=== PATIENT | male | born 1975 | race Caucasian/White ===

== ENCOUNTER 2018-04-26 11:23 | Inpatient (IN) | payer OTHER ==
[2018-04-26 11:54] VITALS: BMI 31.7
--- NOTE | 2018-04-26 15:08 | HP ---
CIWA Score - CIWA Score Nausea/Vomitin-No Nausea/No Vomiting Muscle Tremors: 3 Anxiety: 4-Mod. Anxious/Guarded Agitation: 4-Moderately Restless Paroxysmal Sweats: 1-Minimal Palms Moist Orientation: 0-Oriented Tacttile Disturbances: 0-None Auditory Disturbances: 0-None Visual Disturbances: 0-None Headache: 0-None Present CIWA-Ar Total Score: 12 Admission ROS BHS - HPI Chief Complaint: ALCOHOL WITHDRAWAL SX Allergies/Adverse Reactions: Allergies Allergy/AdvReac Type Severity Reaction Status Date / Time No Known Allergies Allergy Verified 04/26/18 12:13 History of Present Illness: 43 Y/O H/MALE WITH A HX OX ALCOHOL DEPENDENCE SEEKING DETOX [place]. PT REPORTS HE WENT TO [facility] YESTERDAY BECAUSE WAS INTOXICATED AND WAS DISCHARGED TODAY. PT DID NOT BRING DISCHARGE PAPERS STATING "I MUST HAVE LOST IT". PT IS ALERT O X 3. REPORTS PREVIOUS TREATMENT EPISODES "A WHILE BACK" HERE. PT REPORTS HE WENT TO [facility] ALSO WHERE HE WAS GIVEN LIBRIUM POSTED BELOW OBTAINED FROM [facility]. Data Detail Level: Printer-Friendly View Extended View Confidential Drug Utilization Report Search Terms: everardo gonzalez, 1975 Search Date: 04/26/2018 02:59:07 PM The Drug Utilization Report below displays all of the controlled substance prescriptions, if any, that your patient has filled in the last twelve months. The information displayed on this report is compiled from pharmacy submissions to the Department, and accurately reflects the information as submitted by the pharmacies. This report was requested by: Ramila Hanson | Reference #: [id number] You have not added a BIANCA number. Keeping your BIANCA number(s) up to date on the My BIANCA Numbers page will enable the separation of your prescriptions from others ' in the search results. Others' Prescriptions Patient Name: Everardo Gonzalez Date: 1975 Address: [address] [place] [address] Sex: Male Rx Written Rx Dispensed Drug Quantity Days Supply Prescriber Name 04/22/2018 04/22/2018 chlordiazepoxide 10 mg capsule 27 3 Pean, Billy Mackenzie * - Drugs marked with an asterisk are compound drugs. If the compound drug is made up of more than one controlled substance, then each controlled substance will be a separate row in the table. - Ebola screening Have you traveled outside of the country in the last 21 days: No (N) Have you had contact with anyone from an Ebola affected area: No Have you been sick,other than usual withdrawal symptoms: No Do you have a fever: No - Review of Systems Constitutional: Chills, Night Sweats EENT: reports: Cataracts (BOTH EYES), Blurred Vision (HX LEFT EYE RETINAL DETACHMENT), Dental Problems (MISSING TEETH UPPER/LOWER) Respiratory: reports: No Symptoms reported Cardiac: reports: No Symptoms Reported GI: reports: Diarrhea : reports: No Symptoms Reported Musculoskeletal: reports: No Symptoms Reported Integumentary: reports: No Symptoms Reported Neuro: reports: Tremors Endocrine: reports: No Symptoms Reported Hematology: reports: No Symptoms Reported Psychiatric: reports: Orientated x3 Other Systems: Reviewed and Negative Patient History - Patient Medical History Hx Anemia: No Hx Asthma: No Hx Chronic Obstructive Pulmonary Disease (COPD): No Hx Cancer: No Hx Cardiac Disorders: No Hx Hypertension: No Hx Hypercholesterolemia: No Hx Pacemaker: No HX Cerebrovascular Accident: No Hx Seizures: No Hx Dementia: No Hx Diabetes: No Hx Gastrointestinal Disorders: No Hx Liver Disease: No Hx Genitourinary Disorders: No Hx Sexually Transmitted Disorders: No (DENIES) Hx Renal Disease (ESRD): No Hx Thyroid Disease: No Hx Human Immunodeficiency Virus (HIV): No (NEGATIVE HX) Hx Hepatitis C: No (DENIES) Hx Depression: No Hx Suicide Attempt: No (DENIES S/I) Hx Bipolar Disorder: No Hx Schizophrenia: No - Patient Surgical History Past Surgical History: Yes Hx Neurologic Surgery: No Hx Cataract Extraction: No Hx Cardiac Surgery: No Hx Lung Surgery: No Hx Breast Surgery: No Hx Breast Biopsy: No Hx Abdominal Surgery: No Hx Appendectomy: No Hx Cholecystectomy: No Hx Genitourinary Surgery: No Hx Orthopedic Surgery: No Other Surgical History: L EYE SURGERY 1997 Anesthesia Reaction: No - PPD History Previous Implant?: Yes Documented Results: Negative w/proof Date: 04/08/14 - Smoking Cessation Smoking history: Current every day smoker Have you smoked in the past 12 months: Yes Aproximately how many cigarettes per day: 10 Hx Chewing Tobacco Use: No Initiated information on smoking cessation: Yes 'Breaking Loose' booklet given: 04/26/18 - Substances Abused Alcohol Route: Oral Frequency: Daily Amount used: 3 PINTS OF VODKA, 1 6 PACK OF BEER Age of first use: 14 Date of Last Use: 04/25/18 Family Disease History - Family Disease History Family Disease History: Diabetes: Father (HTN), Mother, Other: Father Admission Physical Exam [facility] - Vital Signs Vital Signs: Vital Signs - 24 hr 04/26/18 11:52 Temperature 97.5 F L Pulse Rate 83 Respiratory 19 Rate Blood Pressure 146/80 - Physical General Appearance: Yes: Moderate Distress, Irritable, Anxious HEENTM: Yes: EOMI, Normocephalic, POLINA (RIGHT EYE), Pharynx Normal, Other (LEFT EYE CORNEAL OPACITY) Respiratory: Yes: Chest Non-Tender, Lungs Clear, Normal Breath Sounds, No Respiratory Distress Neck: Yes: No masses,lesions,Nodules, Supple, Trachea in good position Breast: Yes: Breast Exam Deferred Cardiology: Yes: Regular Rhythm, Regular Rate, S1, S2 Abdominal: Yes: Normal Bowel Sounds, Non Tender, Soft Genitourinary: Yes: Other (N/C) Back: Yes: Within Normal Limits Musculoskeletal: Yes: full range of Motion, Gait Steady Extremities: Yes: Normal Range of Motion, Non-Tender Neurological: Yes: 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 intact, Fully Oriented, Alert, Motor Strength 5/5 Integumentary: Yes: Dry, Warm Lymphatic: Yes: Within Normal Limits - Diagnostic (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, left Current Visit: Yes Status: Chronic (3) Nicotine dependence Current Visit: Yes Status: Acute Qualifiers: Nicotine product type: cigarettes Substance use status: in withdrawal Qualified Code(s): F17.213 - Nicotine dependence, cigarettes, with withdrawal (4) Alcohol dependence with uncomplicated withdrawal Current Visit: Yes Status: Acute Cleared for Admission [facility] - Detox or Rehab [facility] Level of Care: Medically Managed Detox Regimen/Protocol: Librium [facility] Breath Alcohol Content Breath Alcohol Content: 0.016 Urine Drug Screen - Results Drug Screen Negative: No Urine Drug Screen Results: BZO-Benzodiazepines
[2018-04-26] MEDS ORDERED: NICOTINE POLACRILEX 2 MG GUM BC PRN (15:19)
[2018-04-26] MEDS ORDERED: IBUPROFEN 400 MG TABLET (FP) PO PRN (15:19)
[2018-04-26] MEDS ORDERED: guaiFENesin/D-METHORPHAN HB 10 ML UNIT-DOSE CUPS PO PRN (15:19)
[2018-04-26] MEDS ORDERED: MENTHOL/PHENOL 1 EACH UD MM PRN (15:19)
[2018-04-26] MEDS ORDERED: ACETAMINOPHEN 325 MG TABLET (FP) PO PRN (15:19)
[2018-04-26] MEDS ORDERED: chlordiazePOXIDE HCL 25 MG CAPSULE PO PRN (15:19)
[2018-04-26] MEDS ORDERED: MAG HYDROX/AL HYDROX/SIMETH 30 ML UNIT-DOSE CUP PO PRN (15:19)
[2018-04-26] MEDS ORDERED: LOPERAMIDE HCL 2 MG CAPSULE PO PRN (15:19)
[2018-04-26] MEDS ORDERED: MAGNESIUM HYDROX 2400MG/30ML ORAL SUSPENSION 30 ML CUP PO PRN (15:19)
[2018-04-26] MEDS ORDERED: P-EPHED 60MG/TRIPROLIDI 2.5MG TABLET PO PRN (15:19)
[2018-04-26] MEDS ORDERED: MAGNESIUM CITRATE 300 ML BOTTLE PO PRN (15:19)
[2018-04-26] MEDS: chlordiazePOXIDE HCL 25 MG CAPSULE PO SCH ×2 (16:30→22:22)
[2018-04-26] MEDS: NICOTINE 14 MG/24 HOURS TOPICAL PATCH TD SCH (16:34)
[2018-04-26 21:19] LABS: URINE APPEARANCE TURBID; URINE BILIRUBIN NEGATIVE (<2.0 mg/dL); URINE COLOR YELLOW; URINE GLUCOSE (UA) NEGATIVE (NEGATIVE); URINE KETONE TRACE (NEGATIVE); URINE LEUK ESTERASE NEGATIVE (NEGATIVE); URINE NITRITE NEGATIVE (NEGATIVE); URINE PROTEIN NEGATIVE (NEGATIVE); URINE UROBILINOGEN NEGATIVE mg/dL (0.2-1.0)
[2018-04-26] MEDS ORDERED: MELATONIN 5 MG TABLETS PO PRN (22:00)
[2018-04-26] MEDS: THIAMINE HCL 100 MG TABLET (FP) PO SCH (22:22)
[2018-04-27] MEDS: chlordiazePOXIDE HCL 25 MG CAPSULE PO SCH ×4 (05:35→22:21)
[2018-04-27 09:52] LABS: HEMATOCRIT 40.4 % (35.4-49); HEMOGLOBIN 13.8 GM/dL (11.7-16.9); MCH 27.9 pg (25.7-33.7); MCHC 34.2 g/dl (32.0-35.9); MEAN CELL VOLUME 81.7 fl (80-96); MEAN PLT VOLUME 8.3 fl (7.5-11.1); PLATELET COUNT 141 K/MM3 (134-434); RBC 4.94 M/mm3 (4.00-5.60); WHITE BLOOD COUNT 5.8 K/mm3 (4.0-10.0)
[2018-04-27 09:57] LABS: ALBUMIN 3.2 g/dl (3.4-5.0); BLOOD UREA NITROGEN 12 mg/dL (7-18); CHLORIDE 106 mmol/L (98-107); POTASSIUM 3.8 mmol/L (3.5-5.1); SODIUM 141 mmol/L (136-145)
[2018-04-27 10:02] LABS: ALK PHOS 85 U/L (45-117); ANION GAP 8 MMOL/L (8-16); BILIRUBIN,TOTAL 0.3 mg/dL (0.2-1.0); CALCIUM 8.9 mg/dL (8.5-10.1); CO2 27 mmol/L (21-32); CREATININE 0.7 mg/dL (0.7-1.3); GLUCOSE,RANDOM 141 mg/dL (74-106); SGOT/AST 21 U/L (15-37); SGPT/ALT 31 U/L (12-78); TOT PROT 6.1 g/dl (6.4-8.2)
[2018-04-27] MEDS: NICOTINE 14 MG/24 HOURS TOPICAL PATCH TD SCH (10:23)
[2018-04-27] MEDS: PRENATAL VITAMINS W/ FOLIC ACID TABLET (FP) PO SCH (10:23)
[2018-04-27 11:04] LABS: SICKLE CELL SCREEN NEGATIVE (NEGATIVE)
--- NOTE | 2018-04-27 11:08 | PN ---
S CIWA - CIWA Score Nausea/Vomitin-No Nausea/No Vomiting Muscle Tremors: 3 Anxiety: 4-Mod. Anxious/Guarded Agitation: 4-Moderately Restless Paroxysmal Sweats: 3 Orientation: 0-Oriented Tacttile Disturbances: 0-None Auditory Disturbances: 0-None Visual Disturbances: 0-None Headache: 0-None Present CIWA-Ar Total Score: 14 BHS Progress Note (SOAP) Subjective: ANXIETY,SWEATS,FATIGUE. DETOX TAPER PROCEEDING WELL. Objective: 04/27/18 11:05 Vital Signs 04/27/18 04/27/18 04/27/18 03:30 06:09 06:30 Temperature 97.5 F L Pulse Rate 68 Respiratory 18 18 18 Rate Blood Pressure 134/85 04/27/18 09:15 Temperature 97.8 F Pulse Rate 64 Respiratory 18 Rate Blood Pressure 134/90 Laboratory Tests 04/26/18 04/27/18 04/27/18 16:48 07:30 07:30 WBC 5.8 RBC 4.94 Hgb 13.8 Hct 40.4 MCV 81.7 MCH 27.9 MCHC 34.2 RDW 15.0 Plt Count 141 D MPV 8.3 Sickle Cell Screen Negative Sodium 141 Potassium 3.8 Chloride 106 Carbon Dioxide 27 Anion Gap 8 BUN 12 Creatinine 0.7 Creat Clearance w eGFR > 60 Random Glucose 141 H D Calcium 8.9 Total Bilirubin 0.3 AST 21 D ALT 31 D Alkaline Phosphatase 85 Total Protein 6.1 L Albumin 3.2 L Urine Color Yellow Urine Appearance Turbid Urine pH 5.0 Ur Specific [place] 1.026 Urine Protein Negative Urine Glucose (UA) Negative Urine Ketones Trace H Urine Blood Negative Urine Nitrite Negative Urine Bilirubin Negative Urine Urobilinogen Negative Ur Leukocyte Esterase Negative LABS NOTED. Assessment: 04/27/18 11:06 WITHDRAWAL SX Plan: CONTINUE DETOX INCREASE PO FLUIDS BGM X 2 DAYS R/O HYPERGLYCEMIA
--- NOTE | 2018-04-27 14:18 | EKG ---
Test Reason : Blood Pressure : / mmHG Vent. Rate : 076 BPM Atrial Rate : 076 BPM P-R Int : 134 ms QRS Dur : 102 ms QT Int : 354 ms P-R-T Axes : 035 079 049 degrees QTc Int : 398 ms NORMAL SINUS RHYTHM NORMAL ECG NO PREVIOUS ECGS AVAILABLE Confirmed by NICK CAMPBELL MD ([id number]) on 04/27/2018 2:17:51 PM Referred By: Confirmed By:NICK CAMPBELL MD
[2018-04-27] MEDS: THIAMINE HCL 100 MG TABLET (FP) PO SCH (22:21)
[2018-04-28] MEDS: chlordiazePOXIDE HCL 25 MG CAPSULE PO SCH ×2 (05:23→10:11)
[2018-04-28] MEDS: PRENATAL VITAMINS W/ FOLIC ACID TABLET (FP) PO SCH (10:11)
[2018-04-28] MEDS: NICOTINE 14 MG/24 HOURS TOPICAL PATCH TD SCH (10:12)
--- NOTE | 2018-04-28 10:45 | PN ---
S CIWA - CIWA Score Nausea/Vomitin-No Nausea/No Vomiting Muscle Tremors: 4-Moderate,w/Arms Extend Anxiety: 4-Mod. Anxious/Guarded Agitation: 4-Moderately Restless Paroxysmal Sweats: 1-Minimal Palms Moist Orientation: 0-Oriented Tacttile Disturbances: 0-None Auditory Disturbances: 0-None Visual Disturbances: 0-None Headache: 0-None Present CIWA-Ar Total Score: 13 BHS Progress Note (SOAP) Subjective: ANXIETY,SWEATS,FATIGUE. Objective: 04/28/18 10:45 Vital Signs 04/28/18 04/28/18 04/28/18 03:44 05:54 06:30 Temperature 97.1 F L Pulse Rate 55 L Respiratory 18 18 18 Rate Blood Pressure 133/86 04/28/18 09:38 Temperature 98.9 F Pulse Rate 65 Respiratory 18 Rate Blood Pressure 121/83 Laboratory Tests 04/26/18 04/27/18 04/27/18 16:48 07:30 07:30 WBC 5.8 RBC 4.94 Hgb 13.8 Hct 40.4 MCV 81.7 MCH 27.9 MCHC 34.2 RDW 15.0 Plt Count 141 D MPV 8.3 Sickle Cell Screen Negative Sodium Potassium Chloride Carbon Dioxide Anion Gap BUN Creatinine Creat Clearance w eGFR POC Glucometer Random Glucose Calcium Total Bilirubin AST ALT Alkaline Phosphatase Total Protein Albumin Urine Color Yellow Urine Appearance Turbid Urine pH 5.0 Ur Specific [place] 1.026 Urine Protein Negative Urine Glucose (UA) Negative Urine Ketones Trace H Urine Blood Negative Urine Nitrite Negative Urine Bilirubin Negative Urine Urobilinogen Negative Ur Leukocyte Esterase Negative RPR Titer HIV 1&2 Antibody Screen Negative HIV P24 Antigen Negative 04/27/18 04/27/18 04/27/18 07:30 07:30 16:25 WBC RBC Hgb Hct MCV MCH MCHC RDW Plt Count MPV Sickle Cell Screen Sodium 141 Potassium 3.8 Chloride 106 Carbon Dioxide 27 Anion Gap 8 BUN 12 Creatinine 0.7 Creat Clearance w eGFR > 60 POC Glucometer 162 Random Glucose 141 H D Calcium 8.9 Total Bilirubin 0.3 AST 21 D ALT 31 D Alkaline Phosphatase 85 Total Protein 6.1 L Albumin 3.2 L Urine Color Urine Appearance Urine pH Ur Specific [place] Urine Protein Urine Glucose (UA) Urine Ketones Urine Blood Urine Nitrite Urine Bilirubin Urine Urobilinogen Ur Leukocyte Esterase RPR Titer Nonreactive HIV 1&2 Antibody Screen HIV P24 Antigen 04/28/18 05:22 WBC RBC Hgb Hct MCV MCH MCHC RDW Plt Count MPV Sickle Cell Screen Sodium Potassium Chloride Carbon Dioxide Anion Gap BUN Creatinine Creat Clearance w eGFR POC Glucometer 157 Random Glucose Calcium Total Bilirubin AST ALT Alkaline Phosphatase Total Protein Albumin Urine Color Urine Appearance Urine pH Ur Specific [place] Urine Protein Urine Glucose (UA) Urine Ketones Urine Blood Urine Nitrite Urine Bilirubin Urine Urobilinogen Ur Leukocyte Esterase RPR Titer HIV 1&2 Antibody Screen HIV P24 Antigen Assessment: 04/28/18 10:45 WITHDRAWAL SX Plan: CONTINUE DETOX
[2018-04-28 12:54] VITALS: BP 116/66; PULSE 62; TEMP 97.4
--- NOTE | 2018-04-28 16:58 | DS ---
[facility] Detox Discharge Summary Admission Date: 04/26/18 Discharge Date: 04/28/18 - History Present History: Alcohol Dependence Additional Comments: PT SIGNED OUT AMA FOR PERSONAL REASONS STATING "I DO'T WANNA BE HERE ANY MORE". Pertinent Past History: PLEASE SEE DX BELOW - Physical Exam Results Vital Signs: Vital Signs Temperature 97.4 F L 04/28/18 12:54 Pulse Rate 62 04/28/18 12:54 Respiratory Rate 18 04/28/18 12:54 Blood Pressure 116/66 04/28/18 12:54 O2 Sat by Pulse Oximetry (%) Pertinent Admission Physical Exam Findings: WITHDRAWAL SX Laboratory Tests 04/26/18 04/27/18 04/27/18 16:48 07:30 07:30 WBC 5.8 RBC 4.94 Hgb 13.8 Hct 40.4 MCV 81.7 MCH 27.9 MCHC 34.2 RDW 15.0 Plt Count 141 D MPV 8.3 Sickle Cell Screen Negative Sodium Potassium Chloride Carbon Dioxide Anion Gap BUN Creatinine Creat Clearance w eGFR POC Glucometer Random Glucose Calcium Total Bilirubin AST ALT Alkaline Phosphatase Total Protein Albumin Urine Color Yellow Urine Appearance Turbid Urine pH 5.0 Ur Specific [place] 1.026 Urine Protein Negative Urine Glucose (UA) Negative Urine Ketones Trace H Urine Blood Negative Urine Nitrite Negative Urine Bilirubin Negative Urine Urobilinogen Negative Ur Leukocyte Esterase Negative RPR Titer HIV 1&2 Antibody Screen Negative HIV P24 Antigen Negative 04/27/18 04/27/18 04/27/18 07:30 07:30 16:25 WBC RBC Hgb Hct MCV MCH MCHC RDW Plt Count MPV Sickle Cell Screen Sodium 141 Potassium 3.8 Chloride 106 Carbon Dioxide 27 Anion Gap 8 BUN 12 Creatinine 0.7 Creat Clearance w eGFR > 60 POC Glucometer 162 Random Glucose 141 H D Calcium 8.9 Total Bilirubin 0.3 AST 21 D ALT 31 D Alkaline Phosphatase 85 Total Protein 6.1 L Albumin 3.2 L Urine Color Urine Appearance Urine pH Ur Specific [place] Urine Protein Urine Glucose (UA) Urine Ketones Urine Blood Urine Nitrite Urine Bilirubin Urine Urobilinogen Ur Leukocyte Esterase RPR Titer Nonreactive HIV 1&2 Antibody Screen HIV P24 Antigen 04/28/18 05:22 WBC RBC Hgb Hct MCV MCH MCHC RDW Plt Count MPV Sickle Cell Screen Sodium Potassium Chloride Carbon Dioxide Anion Gap BUN Creatinine Creat Clearance w eGFR POC Glucometer 157 Random Glucose Calcium Total Bilirubin AST ALT Alkaline Phosphatase Total Protein Albumin Urine Color Urine Appearance Urine pH Ur Specific [place] Urine Protein Urine Glucose (UA) Urine Ketones Urine Blood Urine Nitrite Urine Bilirubin Urine Urobilinogen Ur Leukocyte Esterase RPR Titer HIV 1&2 Antibody Screen HIV P24 Antigen - Treatment Hospital Course: Discharged Condition Good - Medication Discharge Medications: Ambulatory Orders NK [No Known Home Medication] 04/06/14 - Diagnosis (1) Blind left eye Status: Chronic (2) Detached retina, left Status: Chronic (3) Nicotine dependence Status: Acute Qualifiers: Nicotine product type: cigarettes Substance use status: in withdrawal Qualified Code(s): F17.213 - Nicotine dependence, cigarettes, with withdrawal (4) Alcohol dependence with uncomplicated withdrawal Status: Acute (5) Elevated blood sugar level Status: Acute - AMA Did Patient Leave Against Medical Advice: Yes (AMA)
[2018-04-28] MEDS ORDERED: chlordiazePOXIDE 5 MG CAPSULE PO SCH (17:00)
[2018-04-29] MEDS ORDERED: chlordiazePOXIDE HCL 10 MG CAPSULE PO SCH (17:00)
== END 2018-04-28 15:10 | disposition left against medical advice (07) | DRG 770 ==
LOC: YASAS 11:23 → Y3N 15:10
PROC: HZ2ZZZZ Detoxification Services for Substance Abuse Treatment (ICD-10-PCS; principal; 2018-04-26)
DX: F10.230 Alcohol dependence with withdrawal, uncomplicated (principal); F17.210 Nicotine dependence, cigarettes, uncomplicated; H33.22 Serous retinal detachment, left eye; H54.42A3 Blindness left eye category 3, normal vision right eye; R73.9 Hyperglycemia, unspecified
CPT/HCPCS: 36415; 80053; 81003; 82962; 85027; 85660; 86593; 93005; 93010